=== PATIENT | female | born 1955 | race Caucasian/White ===

== ENCOUNTER → 2017-07-09 | Outpatient (CLI) | payer BC ==
[~2017-07-09] MED LIST: PRED10TA PO; XNX25 PO
--- NOTE | 2017-07-09 12:44 | MAMMOGRAPHY REPORT ---
BILATERAL DIGITAL SCREENING MAMMOGRAM TOMOSYNTHESIS WITH CAD: 07/09/2017 TECHNIQUE: Breast tomosynthesis in addition to standard 2D mammography was performed. Current study was also evaluated with a Computer Aided Detection (CAD) system. COMPARISON: Comparison is made to exams dated: 06/09/2016 mammogram, 06/06/2015 mammogram, 05/25/2014 ma mmogram, 05/19/2013 mammogram, 12/28/2011 mammogram, and 12/12/2010 mammogram - [facility] ter. BREAST COMPOSITION: The tissue of both breasts is heterogeneously dense, which may obscure small mas ses. FINDINGS: No suspicious masses, calcifications, or areas of architectural distortion are noted in ei ther breast. There has been no significant interval change compared to prior exams. Asymmetry in the right upper outer quadrant is stable dating back to at least the 2007 exam, and considered benign gi kathryn long-term stability. IMPRESSION: ACR BI-RADS CATEGORY 2: BENIGN There is no mammographic evidence of malignancy. A 1 year screening mammogram is recommended. The pa tient will receive written notification of the results. Approximately 10% of breast cancers are not detected with mammography. A negative mammographic report should not delay biopsy if a clinically suggestive mass is present. Alivia Varma M.D. ah/:07/09/2017 12:36:52 Adoption Counselor: Donna IRELAND(Ahsan)(M), [facility] letter sent: Normal 1/2 BI-RADS Code: ACR BI-RADS Category 2: Benign
== END | disposition home or self-care (01) ==
LOC: C.MAMM 09:28
DX: Z12.31 Encounter for screening mammogram for malignant neoplasm of breast (principal)

== ENCOUNTER → 2018-03-09 | Outpatient (CLI) | payer BC ==
--- NOTE | 2018-03-09 18:03 | DIAGNOSTIC IMAGING REPORT ---
L ANKLE MIN 3 VIEWS ROUTINE CLINICAL HISTORY: 62 years-old Female presenting with LEFT FOOT/ANKLE PAIN. TECHNIQUE: Frontal, mortise, and lateral views of the left ankle were obtained. COMPARISON: None. FINDINGS: Ankle mortise congruent. No acute fracture or malalignment. No advanced degenerative change. No radiographic soft tissue abnormality. IMPRESSION: No acute osseous injury. Electronically signed by: Kuldeep Rodríguez M.D. 03/09/2018 6:02 PM Dictated Date/Time: 03/09/2018 6:01 PM
--- NOTE | 2018-03-09 18:06 | DIAGNOSTIC IMAGING REPORT ---
L FOOT MIN 3 VIEWS ROUTINE CLINICAL HISTORY: 62 years-old Female presenting with LEFT FOOT/ANKLE PAIN. TECHNIQUE: Frontal, oblique, and lateral views of the left foot were obtained. COMPARISON: None. FINDINGS: Obliquely oriented extra articular minimally displaced fracture of the diaphysis of the fifth metatarsal. The distal fracture fragment is displaced less than 2 mm medial. A calcific linear density is also noted lateral to the distal calcaneus. This is indeterminate and not visualized on other views. No significant malalignment. No advanced degenerative change. IMPRESSION: 1. Minimally displaced extra-articular fracture of the diaphysis of the fifth metatarsal. 2. Linear calcific density lateral to the distal calcaneus. This is indeterminate. A small avulsion fracture is difficult to exclude though considered less likely given the location. Correlate with point tenderness. Electronically signed by: Kuldeep Rodríguez M.D. 03/09/2018 6:04 PM Dictated Date/Time: 03/09/2018 6:02 PM
== END | disposition home or self-care (01) ==
LOC: C.RAD 17:19
DX: M25.572 Pain in left ankle and joints of left foot (principal); S92.352A Displaced fracture of fifth metatarsal bone, left foot, initial encounter for closed fracture; X58.XXXA Exposure to other specified factors, initial encounter